=== PATIENT | male | born 1980 | race Caucasian/White ===

== ENCOUNTER 2020-07-21 08:53 | Emergency (ER) | payer SELFPAY ==
[2020-07-21] MEDS ORDERED: ONDANSETRON ODT 4 MG TAB ONE (09:45)
== END 2020-07-21 11:10 | disposition home or self-care (01) ==
LOC: EDH 08:53
DX: S01.01XA Laceration without foreign body of scalp, initial encounter (principal); S80.02XA Contusion of left knee, initial encounter; Z72.0 Tobacco use; X58.XXXA Exposure to other specified factors, initial encounter; Y93.89 Activity, other specified; Y92.89 Other specified places as the place of occurrence of the external cause; Y99.8 Other external cause status
CPT/HCPCS: 12001

== ENCOUNTER → 2020-07-21 | Emergency (ER) | payer SELFPAY ==
[~2020-07-21] MED LIST: ACETAMINOPHEN EXTRA STRENGTH 500 MG TABLET ONE
[2020-07-21 06:39] LABS: BASOPHILS % (AUTO) 0.4 % (0.0-5.0); HEMATOCRIT 44.2 % (42-54); LYMPHOCYTES % (AUTO) 15.9 % (21.0-51.0); MEAN CORPUSCULAR HEMOGLOBIN 33.3 pg (27.0-33.0); MEAN CORPUSCULAR HGB CONC 33.9 g/dL (32.0-36.0); MEAN CORPUSCULAR VOLUME 98.2 fL (79-99); MONOCYTES % (AUTO) 15.2 % (3.0-13.0); NEUTROPHILS % (AUTO) 67.2 % (40.0-77.0); PLATELET COUNT (AUTO) 225 K/uL (130-400); RED CELL DISTRIBUTION WIDTH 14.9 % (11.0-15.5); WHITE BLOOD COUNT (AUTO) 9.4 K/uL (4.8-10.8)
[2020-07-21 06:48] LABS: CREATININE 0.7 mg/dL (0.5-1.5); POTASSIUM 3.3 mmol/L (3.5-5.1)
[2020-07-21 06:51] LABS: INR 0.91 (0.85-1.15)
[2020-07-21 06:52] LABS: PARTIAL THROMBOPLASTIN TIME 24.5 SEC (26.3-35.5)
== END ==
LOC: EDH 05:12
DX: R51.9 Headache, unspecified (principal); M54.2 Cervicalgia; Y04.2XXA Assault by strike against or bumped into by another person, initial encounter; Y93.89 Activity, other specified; Y92.89 Other specified places as the place of occurrence of the external cause; Y99.8 Other external cause status
CPT/HCPCS: 36415; 80048; 85025; 85610; 85730

== ENCOUNTER 2020-08-06 14:46 | Emergency (ER) | payer OTHER | END 2020-08-06 15:31 | disposition home or self-care (01) | LOC: EDH 14:46 | DX: S01.01XD Laceration without foreign body of scalp, subsequent encounter (principal); X58.XXXD Exposure to other specified factors, subsequent encounter | CPT/HCPCS: 99281 ==